=== PATIENT | male | born 1970 | race Caucasian/White ===

== ENCOUNTER 2023-01-10 10:39 | Outpatient (REF) | payer BC, SELFPAY ==
[2023-01-10 12:20] LABS: Estimated Average Glucose 117 mg/dL; Hemoglobin A1c % 5.7 %
[2023-01-10 13:00] LABS: Vitamin B12 682 pg/mL (200-900)
[2023-01-16 11:43] LABS: Vitamin B6 24.2 ng/mL (2.1-21.7)
== END 2023-01-10 10:40 | disposition home or self-care (01) ==
LOC: HO.LAB 10:39
PROVIDERS: PCP Internal Medicine; Visit Provider Nurse Practitioner Family
DX: G62.9 Polyneuropathy, unspecified (principal); M35.3 Polymyalgia rheumatica; R20.0 Anesthesia of skin; R20.2 Paresthesia of skin; M06.9 Rheumatoid arthritis, unspecified; I73.9 Peripheral vascular disease, unspecified; E78.5 Hyperlipidemia, unspecified; I10 Essential (primary) hypertension; Z83.3 Family history of diabetes mellitus; Z87.891 Personal history of nicotine dependence; Z79.52 Long term (current) use of systemic steroids; Z79.899 Other long term (current) drug therapy
CPT/HCPCS: 36415; 82607; 83036; 84207

== ENCOUNTER 2023-01-10 10:39 | Outpatient (AMB) | payer BC, SELFPAY ==
--- NOTE | 2023-01-10 10:54 | A.OFFVIS_ITS ---
Intake Vital Signs 01/10/23 10:59 Height 5 ft 10 in Weight 238 lb 2 oz BMI 34.2 BP 136/82 Blood Pressure Location Lt brachial Position Sitting Pulse 70 Pulse Source Pulse Oximeter Pulse Oximetry (%) 97 Oxygen Delivery Method Room Air Intake Visit Reasons: NUMBNESS AND TINGLING BILATERAL FEET Intake Note: Pain today 2/10. 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 Piña in 2018, gout, hyperlipidemia, polymyalgia rheumatica, rheumatoid arthritis, and former alcohol and tobacco use, presents today with bilateral foot numbness and tingling. Patient reports his symptoms have progressively worsen over the past 3 years. He is on daily prednisone 4 mg for PMR and RA and has family history of late onset of DM in his mother and grandmother. Most recent fasting blood sugar was 102 on 09/06/22. Denies being tested for DM. 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 He denies any radicular back pain symptoms, weakness, bladder or bowel incontinence or saddle anesthesia. No discoloration in his feet or legs but he presents with temperature differences with right foot cold and left foot warm to touch. Neuropathy interferes with his daily activities and functions and sleeping as well. Location Bilateral numbness and tingling in feet Duration Chronic progressive numbness and tingling in both feet, R>L over 3 years Characteristics of symptom or complaint Aching, numbness, tingling, dull, sore hurting, heavy Aggravating or associated factors Prolonged standing and walking Relieving factors Rest Treatment None [facility] Medical History (Updated 01/10/23 @ 11:41 by MT Ferraro) Gout Hyperlipidemia Hypertension Hypothyroidism Polymyalgia rheumatica Rheumatoid arthritis Surgical History (Updated 01/10/23 @ 11:05 by Tram Rivera) History of lumbar surgery Social History (Updated 01/10/23 @ 11:01 by Tram Rivera) Alcohol intake: former Patient Tobacco Use Status: Former Tobacco user Quit Date: 2019 Tobacco use type: Cigarette Substance Use Type: Marijuana Substance Use Frequency: Daily Review of Systems Const All systems reviewed & are unremarkable except as noted in HPI and below Physical Exam Vital Signs: Last Vital Signs Pulse 70 01/10/23 10:59 BP 136/82 01/10/23 10:59 Pulse Ox 97 01/10/23 10:59 Oxygen Delivery Method Room Air 01/10/23 10:59 BMI result Body Mass Index 34.2 General: Appears afebrile. Alert and oriented. Mood and affect appropriate. Follows and participates in conversation appropriately. Respiratory effort is unlabored. No cough. Able to transition from sit to stand unassisted. Ambulates with bilaterally normal heel strike and toe off. Back/Spine/Pelvis Cervical Spine: cervical ROM normal and No Cervical spine tenderness Thoracic/Lumbar Spine: thoracic and lumbar spine normal to inspection, No Thoracic/lumbar spine scar(s), thoraco-lumbar ROM normal, Lasegue's sign negative, straight leg raise negative bilaterally, No thoracic spinal tenderness and No lumbar spinal tenderness Pelvis: no sciatic notch tenderness Extrem Other: There is decreased sensation over mid foot and the soles of the feet and toes bilaterally. No breaks in the skin. No soft tissue swelling or warmth. +2 left and +1 right pedal pulses bilaterally. Slightly decreased cap refill on the right. Temperature differences noted, right foot cool and left foot warm to touch. General: Yes full ROM, Yes no pedal edema, Yes no calf tenderness, No cyanosis and No Limp noted Assessment & Plan Assessment & Plan (1) Neuropathy of both feet: Code(s): G57.93 - Unspecified mononeuropathy of bilateral lower limbs (2) Polymyalgia rheumatica: Code(s): M35.3 - Polymyalgia rheumatica (3) On prednisone therapy: Code(s): Z79.52 - care home (current) use of systemic steroids (4) Peripheral neuropathy: Code(s): G62.9 - Polyneuropathy, unspecified (5) PVD (peripheral vascular disease): Code(s): I73.9 - Peripheral vascular disease, unspecified (6) History of tobacco use: Code(s): Z87.891 - Personal history of nicotine dependence Plan 1. Will check Hemoglobin A1C, B6 and B12 levels to help us guide in diagnosis of progressive numbness and tingling with neuropathy over the past 3 years. Positive family history of DM and personal history of daily prednisone therapy for PMR and RA. Also will obtain EMG and NVC studies to differentiate peripheral neuropathy. Discussed treatments, including Qutenza patch application and Nevro SCS trial. Informational brochures provided. 2. Prior authorization request sent and will arrange topical 8% capsaicin application in office if approved. 3. Vascular consultation to rule out venous insufficiency and PVD given previous history of tobacco use, long years of work and presently always on his feet, progressive numbness, neuropathy worse on right than left with cold right foot. Patient understands and expressed understanding of the plan. All questions and concerns have been answered. Follow up for lab/EMG/NVC studies and sooner if needed. 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 NE electromyogram (EMG) Today G57.93 - Unspecified mononeuropathy of bilateral lower limbs, G62.9 - Polyneuropathy, unspecified NE nerve conduction velocity Today G57.93 - Unspecified mononeuropathy of bilateral lower limbs, G62.9 - Polyneuropathy, unspecified Vitamin B12 Today G57.93 - Unspecified mononeuropathy of bilateral lower limbs Vitamin B6 Today G57.93 - Unspecified mononeuropathy of bilateral lower limbs, G62.9 - Polyneuropathy, unspecified Referrals Vascular Surgery Referral G62.9 - Polyneuropathy, unspecified, I73.9 - Peripheral vascular disease, unspecified, Z87.891 - Personal history of nicotine dependence Medications: New capsaicin 0.1% (Arthritis Pain Relief (capsaicin)) do not wash area for at least 30 min after application 1 appl topical TID 60 grams 1RF neuropathy G57.93 - Unspecified mononeuropathy of bilateral lower limbs Coding Level of Care Code New Pt Level 4 (43213) Diagnoses Neuropathy of both feet G57.93 Polymyalgia rheumatica M35.3 On prednisone therapy Z79.52 Peripheral neuropathy G62.9 PVD (peripheral vascular disease) I73.9 History of tobacco use Z87.891
[2023-01-10 10:59] VITALS: BP 136/82; PULSE 70; O2SAT 97; BMI 34.2
== END 2023-01-10 11:32 | disposition home or self-care (01) ==
PROVIDERS: PCP Internal Medicine; Visit Provider Nurse Practitioner Family
DX: G57.93 Unspecified mononeuropathy of bilateral lower limbs (principal); M35.3 Polymyalgia rheumatica; Z79.52 Long term (current) use of systemic steroids; G62.9 Polyneuropathy, unspecified; I73.9 Peripheral vascular disease, unspecified; Z87.891 Personal history of nicotine dependence
CPT/HCPCS: 99204

== ENCOUNTER 2023-02-14 08:54 | Outpatient (REF) | payer BC, SELFPAY ==
--- NOTE | 2023-02-14 08:57 | EMG_ITS ---
Bilateral tibial and peroneal motor studies were performed. Bilateral sural, superficial peroneal, and median and lateral plantar studies were performed. Tibial H reflexes were obtained and paraspinal muscles were tested with a needle. 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 A formal neurology consultation is recommended for proper evaluation and management. MD EMMY Novoa/JENNY / [phone]
== END 2023-02-14 08:55 | disposition home or self-care (01) ==
LOC: HO.NEURO 08:54
PROVIDERS: PCP Internal Medicine; Visit Provider Nurse Practitioner Family
DX: G57.93 Unspecified mononeuropathy of bilateral lower limbs (principal); M35.3 Polymyalgia rheumatica
CPT/HCPCS: 17999; 95886; 95913; J7336

== ENCOUNTER 2023-02-14 13:04 | Outpatient (AMB) | payer BC, SELFPAY ==
--- NOTE | 2023-02-14 13:06 | A.OFFVIS_ITS ---
Intake Vital Signs 02/14/23 13:14 02/14/23 13:49 02/14/23 14:06 Height 5 ft 10 in Weight 240 lb BMI 34.4 BP 137/83 136/86 136/80 Blood Pressure Location Rt brachial Rt brachial Rt brachial Position Sitting Sitting Sitting Pulse 72 73 80 Pulse Source Pulse Oximeter Pulse Oximeter Pulse Oximeter Temp 98 F Pulse Oximetry (%) 96 98 98 Oxygen Delivery Method Room Air Room Air Room Air Comment 15 mins after qutenza application Intake Visit Reasons: Qutenza - PN Intake Note: Patient comes in today for application of qutenza to bilateral feet, Pain today 0/10. Lot # [id number] exp: 06/2025, [facility]- 87229-305-93 Lunchroom Monitor Required: No Accompanied by: Unknown Allergies No Known Allergies Allergy (Verified 02/14/23 13:11) HPI HPI Comments History of Present Illness Details Patient presents for application of capsaicin 8% topical patch for peripheral neuropathy in bilateral feet. Patient reports he completed EMG stud ies this morning and results are pending. Denies any recent cough, cold, infection, fever or other significant changes in medical history since last office visit. PRIOR: Patient is a pleasant 52 years old male with history of L4-L5 microdiscectomy by Dr. Piña in 2018, gout, hyperlipidemia, polymyalgia rheumatica, rheumatoid arthritis, and former alcohol and tobacco use, presents today with bilateral foot numbness and tingling. Patient reports his symptoms have progressively worsen over the past 3 years. He is on daily prednisone 4 mg for PMR and RA and has family history of late onset of DM in his mother and grandmother. Most recent fasting blood sugar was 102 on 09/06/22. Denies being tested for DM. Bilateral foot pain is associated with constant aching, numbness and tingling sensations in his feet, which at times is exacerbated by his chronic back pain and left hip pain too. He constantly on his feet at work and reports increase in pain by the end of the day. He denies any radicular back pain symptoms, weakness, bladder or bowel incontinence or saddle anesthesia. No discoloration in his feet or legs but he presents with temperature differences with right foot cold and left foot warm to touch. Neuropathy interferes with his daily activities and functions and sleeping as well. Location Bilateral numbness and tingling in feet Duration Chronic progressive numbness and tingling in both feet, R>L over 3 years Characteristics of symptom or complaint Aching, numbness, tingling, dull, sore hurting, heavy Aggravating or associated factors Prolonged standing and walking Relieving factors Rest Treatment None PFSH Medical History Gout Hyperlipidemia Hypertension Hypothyroidism Polymyalgia rheumatica Rheumatoid arthritis Surgical History History of lumbar surgery Social History Alcohol intake: former Patient Tobacco Use Status: Former Tobacco user Quit Date: 2019 Tobacco use type: Cigarette Substance Use Type: Marijuana Review of Systems Const All systems reviewed & are unremarkable except as noted in HPI and below Physical Exam Vital Signs: Last Vital Signs Temp 98 F 02/14/23 13:49 Pulse 73 02/14/23 13:49 BP 136/86 02/14/23 13:49 Pulse Ox 98 02/14/23 13:49 Oxygen Delivery Method Room Air 02/14/23 13:49 BMI result Body Mass Index 34.4 General: Appears afebrile. Alert and oriented. Mood and affect appropriate. Follows and participates in conversation appropriately. Respiratory effort is unlabored. No cough. Able to transition from sit to stand unassisted. Ambulates with bilaterally normal heel strike and toe off. Extrem Other: There is decreased sensation over plantar and dorsal surfaces of both feet and toes bilaterally. No breaks in the skin. No soft tissue swelling or warmth. +2 pedal pulses bilaterally. Slightly decreased cap refill on the right. General: Yes full ROM, Yes no pedal edema, Yes no calf tenderness, No cyanosis and No muscle atrophy Office Procedures Topical Capsaicin Date 1:: 02/14/23 Main area of pain on the body: Bilateral feet Laterality: Bilateral Location of left foot pain: Plantar and Dorsal Location of right foot pain: Plantar and Dorsal Quality of pain: Nagging, Numb-like and Tiring Details:: Two patches, 560 cm2 were utilized per each foot. EMLA Cream (lidocaine 2.5% and prilocaine 2.5%) was applied at home by patient prior to application of the patches. The patient tolerated the procedure well. His vitals signs remained stable throughout the procedure. Patient was able to complete the stipulated 30 minutes of the therapeutic application without any discomfort. Office Meds capsaicin-skin cleanser 8 % Performing Provider: MT Ferraro Administered by: MT Ferraro on 02/14/23 13:34 Dose Route Admin Location Lot Number Expiration Date NDC Extruding Press Adjuster 4 ea topical [facility] [id number] 06/17/25 83559-493-89 [place] Results Reviewed Results Reviewed: Assessment & Plan Assessment & Plan (1) Peripheral neuropathy: Code(s): G62.9 - Polyneuropathy, unspecified (2) Polymyalgia rheumatica: Code(s): M35.3 - Polymyalgia rheumatica (3) Neuropathy of both feet: Code(s): G57.93 - Unspecified mononeuropathy of bilateral lower limbs Plan Patient is status post 1st round of application of topical capsaicin 8% for neuropathy in bilateral feet. Patient tolerated the procedure without significant discomfort with application of EMLA cream prior to the procedure. Patient was discharged home in stable condition with discharge instructions. Next Qutenza patch application is scheduled in 3 months. Patient completed EMG studies this morning, final results are pending. Will proceed with Neurology Referral for further evaluation of peripheral neuropathy. Recent A1C was 5.7. All questions and concerns were answered and the patient agreed with the plan. Follow up as needed. Greater than 45 minutes were spent in therapeutic application and in coordination of the care. Orders: Orders AMB Capsaicin Patch - Practice Supplied Today G62.9 - Polyneuropathy, unspeci fied Referrals Neurology Referral G62.9 - Polyneuropathy, unspecified Coding Level of Care Code Est Pt Level 5 (33512) Diagnoses Peripheral neuropathy G62.9 Polymyalgia rheumatica M35.3 Neuropathy of both feet G57.93
[2023-02-14 13:14] VITALS: BP 137/83; PULSE 72; O2SAT 96; BMI 34.4
[2023-02-14 13:49] VITALS: BP 136/86; PULSE 73; TEMP 36.6; O2SAT 98
[2023-02-14 14:06] VITALS: BP 136/80; PULSE 80; O2SAT 98
== END 2023-02-14 14:06 | disposition home or self-care (01) ==
PROVIDERS: PCP Internal Medicine; Visit Provider Nurse Practitioner Family
DX: G62.9 Polyneuropathy, unspecified (principal); M35.3 Polymyalgia rheumatica; G57.93 Unspecified mononeuropathy of bilateral lower limbs
CPT/HCPCS: 17999; 99215

== ENCOUNTER 2023-03-07 10:18 | Outpatient (AMB) | payer BC, SELFPAY ==
[2023-03-07 10:35] VITALS: BMI 34.1
--- NOTE | 2023-03-07 10:35 | A.OFFVIS_ITS ---
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 Nothing helps to stop the numbness and tingling, has been working on his feet his whole life. 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 He reports that he has a constant numbness of bilateral lower extremities. He has a prior history of an L4-L5 micro diskectomy by Dr. Dickens in 2018. He since that time reports significant numbness and tingling of the feet. He does have a prior history of smoking about a pack a day. He reports that he quit about 5 years ago. In addition he is a nondiabetic. He does have several issues going on including shoulder pain on abdominal hernia along with chronic back pain. His concern is this numbness of the feet where he now presents to us for vascular evaluation. [facility] Medical History Hyperlipidemia Gout Polymyalgia rheumatica Hypothyroidism Rheumatoid arthritis Hypertension Surgical History History of lumbar surgery Social History Alcohol intake: former Patient Tobacco Use Status: Former Tobacco user Quit Date: 2019 Tobacco use type: Cigarette Substance Use Type: Marijuana Review of Systems Const All systems reviewed & are unremarkable except as noted in HPI and below Reports no additional complaints ENT Reports Normal hearing present Card Denies chest pain, Denies chest pain at rest, Denies chest pain with activity and Denies pedal edema Resp Denies cough GI Denies abdominal pain Musc Denies abnormal gait, Denies muscle cramps and Denies radiating pain into limb Skin/Breast Denies skin ulcer and Denies wounds Neuro Reports Normal hearing present and Denies abnormal gait Psych Reports no additional complaints Physical Exam Vital Signs: BMI result Body Mass Index 34.1 Const General: cooperative, healthy appearing and comfortable Orientation/consciousness: oriented to person, oriented to place and oriented to time HEENT Head: Yes normal to inspection Neck Neck: Yes normal visual inspection Carotids: no bruits Chest Chest palpation & inspection: normal inspection of the chest Resp Effort & Inspection: normal respiratory effort and able to speak in complete sentences Auscultation: clear to auscultation bilaterally, no crackles, no rales, no rhonchi and no wheezes Cardio Other: Bilateral DP signals Rate: regular rate Rhythm: regular rhythm Heart sounds: S1 normal heart sound present and S2 normal heart sound present Bruits: no carotid bruits Peripheral pulses: Peripheral pulses 2+ throughout GI Inspection: Yes normal to inspection Skin Wounds: no wounds Hair: normal Neuro General: oriented to person, oriented to place and oriented to time Cranial nerves: Yes CN's II-XII intact bilaterally and Yes Normal hearing present Cognition (Neuro): normal cognition Motor exam (neuro): 5/5 motor strength present throughout Extrem Other: venous exam: No significant superficial varicosities or spider tel angiectasias, minimal edema General: No clubbing, No cyanosis and No edema Psych Appearance: grossly normal Mental Status: mental status grossly normal Speech and movement: Normal speech and movement present Results Reviewed Results Reviewed: Nerve conduction testing dated 02/14/2023: 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 A formal neurology consultation is recommended for proper evaluation and management. Written report reviewed Assessment & Plan Assessment & Plan (1) PVD (peripheral vascular disease): Code(s): I73.9 - Peripheral vascular disease, unspecified Plan: In short there is concern of peripheral vascular disease as the patient has a significant smoking history. I have taken the liberty of ordering noninvasive arterial testing to rule that out. He will follow up with us after testing. We also discussed the possibility a neurologic evaluation as well. Thank you for allowing us to assist in his care. If there are any questions or concerns please do not hesitate to contact us. Orders: Orders US arterial duplex LE BI 1 Week I73.9 - Peripheral vascular disease, unspecified Coding Level of Care Code Est Pt Level 4 (08390) Diagnoses PVD (peripheral vascular disease) I73.9
== END 2023-03-07 11:08 | disposition home or self-care (01) ==
PROVIDERS: PCP Internal Medicine; Visit Provider Surgery Vascular Surgery
DX: I73.9 Peripheral vascular disease, unspecified (principal)
CPT/HCPCS: 99213

== ENCOUNTER → 2023-03-07 10:18 | Outpatient (BNVA) | payer BC, SELFPAY | PROVIDERS: PCP Internal Medicine; Visit Provider Surgery Vascular Surgery ==